=== PATIENT | female | born 1965 | race Hispanic/Latino ===

== ENCOUNTER 2017-10-16 22:31 | Observation (INO) | payer OTHER ==
[2017-10-16 23:03] LABS: Absolute Lymphocytes (CBC) 3.3 K/uL (0.7-4.9); Absolute Monocytes 0.3 K/uL (0.1-1.3); Absolute Neutrophil 2.8 K/uL (1.8-8.0); Basophils % 0.5 % (0-1.3); Eosinophils % 4.4 % (0-4.4); Hematocrit 38.4 % (36.0-45.0); Lymphocytes % 49.4 % (15.3-44.8); MCV 79.7 fL (80-100); MPV 8.4 fL (7.6-11.3); Monocytes % 4.5 % (3.3-12.3); RBC Red Blood Cell Count 4.82 M/uL (3.86-4.86)
[2017-10-16 23:07] LABS: Protime INR 0.97
[2017-10-16] MEDS ORDERED: ONDANSETRON 4 MG/2 ML VIAL ONE (23:13)
[2017-10-16] MEDS ORDERED: NA CHLORIDE 0.9% 1,000 ML ONE (23:13)
[2017-10-16] MEDS ORDERED: ASPIRIN 81 MG CHEWABLE TABLET ONE (23:13)
[2017-10-16 23:17] LABS: Potassium 3.5 mEq/L (3.6-5.0)
[2017-10-16 23:23] LABS: Albumin 4.5 g/dL (3.2-5.5); Bilirubin Direct 0.1 mg/dL (0-0.2); Bilirubin Total 0.5 mg/dL (0.3-1.2); Magnesium 1.9 mg/dL (1.8-2.5); Protein, Total 8.6 g/dL (6.0-8.3)
[2017-10-16 23:25] LABS: CKMB Creatine Kinase MB 1.9 ng/ml (0.3-4.0)
[2017-10-16] MEDS ORDERED: METOPROLOL TAR 25 MG TAB ONE (23:40)
--- NOTE | 2017-10-17 01:52 | EDPHYS ---
Physician Documentation [facility] Name: Lucia Perera Age: 52 yrs Sex: Female : 1965 Arrival Date: 10/16/2017 Time: 22:33 Bed 2 Private MD: ED Physician Alfonzo Cruz HPI: 10/16 22:48 This 52 yrs old Female presents to ER via Unassigned with complaints of Chest cp Pain. 22:48 The patient or guardian reports chest pain that is located primarily in the anterior cp chest wall, left. 22:48 Onset: this morning. The pain radiates to the left arm, back. Associated signs and cp symptoms: Pertinent positives: nausea, recent travel, Pertinent negatives: abdominal pain, diaphoresis, headache, lower extremity pain, lower extremity swelling, near syncope, syncope. The chest pain is described as a pressure, heaviness. Duration: The patient or guardian reports a single episode, that is still ongoing. 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 - Social history:: Smoking status: Patient/guardian denies using tobacco. - Ebola Screening: : No symptoms or risks identified at this time. ROS: 22:55 Constitutional: Negative for body aches, chills, fever, poor PO intake. cp 22:55 Eyes: Negative for injury, pain, redness, and discharge. cp 22:55 ENT: Negative for drainage from ear(s), ear pain, sore throat, difficulty swallowing, difficulty handling secretions. 22:55 Cardiovascular: Positive for chest pain, Negative for edema, palpitations. 22:55 Respiratory: Negative for cough, wheezing. 22:55 Abdomen/GI: Positive for nausea, Negative for vomiting, diarrhea, constipation, black/tarry stool, rectal bleeding. 22:55 Back: Positive for radiated pain. 22:55 : Negative for urinary symptoms, flank pain. 22:55 Skin: Negative for cellulitis, rash. 22:55 Neuro: Negative for altered mental status, dizziness, headache, numbness, syncope, near syncope, weakness. 22:55 All other systems are negative. Exam: 23:00 Constitutional: The patient appears in no acute distress, alert, awake, cp non-diaphoretic, non-toxic, well developed, well nourished. 23:00 Head/Face: Normocephalic, atraumatic. Eyes: Pupils equal round and reactive to light, cp extra-ocular motions intact. Lids and lashes normal. Conjunctiva and sclera are non-icteric and not injected. Cornea within normal limits. Periorbital areas with no swelling, redness, or edema. ENT: Nares patent. No nasal discharge, no septal abnormalities noted. Tympanic membranes are normal and external auditory canals are clear. Oropharynx with no redness, swelling, or masses, exudates, or evidence of obstruction, uvula midline. Mucous membranes moist. Neck: Trachea midline, no thyromegaly or masses palpated, and no cervical lymphadenopathy. Supple, full range of motion without nuchal rigidity, or vertebral point tenderness. No Meningismus. Chest/axilla: Normal chest wall appearance and motion. Nontender with no deformity. No lesions are appreciated. 23:00 Cardiovascular: Rate: normal, Rhythm: regular, Heart sounds: murmur, not appreciated, rub, not appreciated, gallop, not appreciated, Edema: is not appreciated, JVD: is not appreciated. 23:00 Respiratory: the patient does not display signs of respiratory distress, Respirations: normal, no use of accessory muscles, no retractions, no splinting, no tachypnea, labored breathing, is not present, Breath sounds: are clear throughout, no decreased breath sounds, no stridor, no wheezing. 23:00 Abdomen/GI: Inspection: abdomen appears normal, Bowel sounds: active, all quadrants, Palpation: abdomen is soft and non-tender, in all quadrants, rebound tenderness, is not appreciated, voluntary guarding, is not appreciated, involuntary guarding, is not appreciated. 23:00 Back: pain, that is mild, CVA tenderness, is absent. 23:00 Musculoskeletal/extremity: Exam is negative for calf tenderness, decreased range of motion, edema. 23:00 Skin: cellulitis, is not appreciated, no rash present. 23:00 Neuro: Orientation: to person, place \T\ time. Mentation: lucid, able to follow commands, Cerebellar function: is grossly normal, Motor: moves all fours, strength is normal, Sensation: no obvious gross deficits. Vital Signs: 23:02 BP 137 / 97; Pulse 91; Resp 18; Temp 97.9(TE); Pulse Ox 96% on R/A; Weight 83.46 kg; tl2 Height 4 ft. 11 in. (149.86 cm); Pain 5/10; 23:09 BP 137 / 89; Pulse 83; Resp 20; Pulse Ox 100% on R/A; mt 10/17 00:05 BP 122 / 82; Pulse 82; Resp 16; Pulse Ox 98% on R/A; mt 00:30 BP 117 / 79; Pulse 82; Resp 18; Pulse Ox 99% on R/A; Pain 0/10; tl2 01:06 BP 134 / 71; Pulse 68; Resp 18; Pulse Ox 95% on R/A; tl2 01:53 BP 121 / 84; Pulse 69; Resp 20; Pulse Ox 96% on R/A; mt 03:00 BP 114 / 81; Pulse 83; Resp 18; Pulse Ox 100% on R/A; tl2 10/16 23:02 Body Mass Index 37.16 (83.46 kg, 149.86 cm) tl2 MDM: 10/16 22:50 Patient medically screened. 23:00 Differential diagnosis: abnormal EKG, acute myocardial infarction, acute pericarditis, cp chest wall pain, costochondritis, myocarditis, pancreatitis, peptic ulcer disease, pericarditis, pleurisy, pneumonia, pneumothorax, pulmonary embolus, stable angina, thoracic aortic disection, unstable angina. 10/17 01:49 Physician consultation: Brandt Ramirez MD was called at 01:50, was contacted at 01:50, regarding admission, to the telemetry unit. patient's condition. 03:00 Data reviewed: vital signs, nurses notes, lab test result(s), EKG, radiologic studies, cp CT scan. 03:00 The patient was given aspirin in the Emergency Department. Test interpretation: by ED cp physician or midlevel provider: ECG, plain radiologic studies. Response to treatment: the patient's symptoms have markedly improved after treatment. 10/16 22:50 Order name: Basic Metabolic Panel; Complete Time: 23:27 cp 06/10 23:49 Interpretation: Normal except: K 3.5; GLUC 201; GFR 74. cp 10/16 22:50 Order name: BNP; Complete Time: 23:49 cp 10/16 22:50 Order name: CBC with Diff; Complete Time: 23:27 cp 10/16 23:49 Interpretation: Normal except: MCV 79.7; MCH 26.0; CHRISTIAN% 41.2; LYM% 49.4. cp 10/16 22:50 Order name: Ckmb; Complete Time: 23:27 cp 10/16 22:50 Order name: CPK; Complete Time: 23:27 cp 10/16 22:50 Order name: LFT's; Complete Time: 23:27 cp 10/16 23:50 Interpretation: Normal except: SGOT 75; SGPT 65; TP 8.6; GLOB 4.1. 10/16 22:50 Order name: Magnesium; Complete Time: 23:27 cp 10/16 23:50 Interpretation: MG 1.9; Reviewed. 10/16 22:50 Order name: PT-INR; Complete Time: 23:27 10/16 22:50 Order name: Ptt, Activated; Complete Time: 23:27 cp 10/16 22:50 Order name: Troponin (emerg Dept Use Only); Complete Time: 23:27 10/16 22:50 Order name: XRAY Chest (1 view) 10/16 22:50 Order name: Lipase; Complete Time: 23:27 10/17 03:40 Order name: Urine Dipstick--Ancillary (enter results) [facility] 10/17 03:40 Order name: Urine --Ancillary (enter results) [facility] 10/16 22:50 Order name: Urine Test (obtain specimen); Complete Time: 00:28 cp 10/16 22:50 Order name: EKG; Complete Time: 22:50 cp 10/16 22:50 Order name: Cardiac monitoring; Complete Time: 23:06 cp 10/16 22:50 Order name: EKG - Nurse/Tech; Complete Time: 23:06 cp 10/16 22:50 Order name: IV Saline Lock; Complete Time: 23:06 cp 10/16 22:50 Order name: Labs collected and sent; Complete Time: 23:06 cp 10/16 22:50 Order name: O2 Per Protocol; Complete Time: 23:06 cp 10/16 22:50 Order name: O2 Sat Monitoring; Complete Time: 23:06 cp 10/16 23:27 Order name: CT Aorta for Dissection 10/16 22:50 Order name: Urine Dipstick-Ancillary (obtain specimen); Complete Time: 00:29 cp Administered Medications: 10/16 23:06 Drug: Aspirin Chewable Tablet 324 mg Route: PO; tl2 10/17 03:08 Follow up: Response: No adverse reaction tl2 10/16 23:20 Drug: NS 0.9% 500 ml Route: IV; Rate: bolus; Site: left antecubital; tl1 10/17 03:08 Follow up: IV Status: Completed infusion; IV Intake: 500ml tl2 10/16 23:21 Drug: Zofran 4 mg Route: IVP; Infused Over: 2 mins; Site: left antecubital; tl1 10/17 00:30 Follow up: Response: No adverse reaction; Nausea is decreased tl2 00:06 Drug: Metoprolol 25 mg Route: PO; tl1 03:08 Follow up: Response: No adverse reaction tl2 00:06 Not Given (Do not have on unit): morphine 2 mg IVP once tl1 00:08 Drug: NS 0.9% 1000 ml Route: IV; Rate: 100 ml/hr; Site: right antecubital; tl1 03:26 Follow up: IV Status: Infusion continued upon admission tl2 03:08 Drug: Lovenox 40 mg Route: Sub-Q; Site: right lower abdomen; tl2 03:26 Follow up: Response: No adverse reaction tl2 Disposition: 03:41 Co-signature as Attending Physician, Alfonzo Cruz MD. pk Disposition: 10/17/17 01:50 Hospitalization ordered by Brandt Ramirez for Observation. Preliminary diagnosis is Chest pain, unspecified. - Bed requested for Telemetry/MedSurg (observation). - Status is Observation. tl2 - Condition is Stable. - Problem is new. - Symptoms have improved. UTI on Admission? No Signatures: Dispatcher [employer] EDMS Alfonzo Cruz MD MD pkPriya Hoang RN RN tl1 Tello Kern PA PA cp Knox, Taylor, RN RN tl2 Loyda Blanton mt Corrections: (The following items were deleted from the chart) 01:53 01:50 Hospitalization Ordered by Brandt Ramirez MD for Observation. Preliminary mt diagnosis is Chest pain, unspecified. Bed requested for Telemetry/MedSurg (observation). Status is Observation. Condition is Stable. Problem is new. Symptoms have improved. UTI on Admission? No. cp 03:27 01:53 10/17/2017 01:50 Hospitalization Ordered by Brandt Ramirez MD for Observation. tl2 Preliminary diagnosis is Chest pain, unspecified. Bed requested for Telemetry/MedSurg (observation). Status is Observation. Condition is Stable. Problem is new. Symptoms have improved. UTI on Admission? No. mt 03:40 03:27 10/17/2017 01:50 Hospitalization Ordered by Brandt Ramirez MD for Observation. tl2 Preliminary diagnosis is Chest pain, unspecified. Bed requested for Telemetry/MedSurg (observation). Status is Observation. Condition is Stable. Problem is new. Symptoms have improved. UTI on Admission? No. tl2
--- NOTE | 2017-10-17 01:52 | ER ---
Nurse's Notes [facility] Name: Lucia Perera Age: 52 yrs Sex: Female : 1965 Arrival Date: 10/16/2017 Time: 22:33 Bed 2 Private MD: Diagnosis: Chest pain, unspecified Presentation: 10/16 23:00 Presenting complaint: Patient states: I've had chest discomfort for 2 days but it got tl2 worse today. Pressure in mid chest that goes straight through to back. Reports heaviness in left arm, nausea and feels clammy. Transition of care: patient was not received from another setting of care. Onset of symptoms was October 14, 2017. Risk Assessment: Do you want to hurt yourself or someone else? Patient reports no desire to harm self or others. Initial Sepsis Screen: Does the patient meet any 2 criteria? No. Patient's initial sepsis screen is negative. Does the patient have a suspected source of infection? No. Patient's initial sepsis screen is negative. Care prior to arrival: None. 23:00 Method Of Arrival: Ambulatory tl2 23:00 Acuity: SAMANTA 2 tl2 Triage Assessment: 23:02 General: Appears in no apparent distress. uncomfortable, Behavior is cooperative, tl2 appropriate for age, anxious. Pain: Complains of pain in mid-sternal area Pain radiates to thoracic area Pain currently is 5 out of 10 on a pain scale. Quality of pain is described as pressure, Pain began 2-3 days ago. Is intermittent. Neuro: Level of Consciousness is awake, alert, obeys commands, Oriented to person, place, time, situation. Cardiovascular: Reports diaphoresis, nausea, Heart tones S1 S2 present Rhythm is sinus rhythm Chest pain is described as mild, quality is pressure, is located in anterior posterior radiates to left arm(s). Respiratory: Airway is patent Respiratory effort is even, unlabored, Respiratory pattern is regular, symmetrical. GI: Reports nausea, Patient currently denies vomiting. : No signs and/or symptoms were reported regarding the genitourinary system. Derm: Skin is pink, warm \T\ dry. 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 - Social history:: Smoking status: Patient/guardian denies using tobacco. - Ebola Screening: : No symptoms or risks identified at this time. Screenin/11 00:31 Abuse screen: Denies threats or abuse. Nutritional screening: No deficits noted. tl2 Tuberculosis screening: No symptoms or risk factors identified. Fall Risk None identified. Assessment: 10/16 23:02 General: see triage assessment. tl1 10/17 00:08 Reassessment: Pt stated that she did not need anything for pain at this time. We are tl1 out of morphine in the ED and pt did not want to take anything else. 01:30 Reassessment: Patient appears in no apparent distress at this time. Patient and/or tl2 family updated on plan of care and expected duration. Pain level reassessed. Patient is alert, oriented x 3, equal unlabored respirations, skin warm/dry/pink. 02:30 Reassessment: Patient appears in no apparent distress at this time. Patient and/or tl2 family updated on plan of care and expected duration. Pain level reassessed. Patient is alert, oriented x 3, equal unlabored respirations, skin warm/dry/pink. 03:25 Reassessment: Patient appears in no apparent distress at this time. Patient and/or tl2 family updated on plan of care and expected duration. Pain level reassessed. Patient is alert, oriented x 3, equal unlabored respirations, skin warm/dry/pink. Pt stable and ready for transport to floor Patient states feeling better. Vital Signs: 10/16 23:02 BP 137 / 97; Pulse 91; Resp 18; Temp 97.9(TE); Pulse Ox 96% on R/A; Weight 83.46 kg; tl2 Height 4 ft. 11 in. (149.86 cm); Pain 09/15; 23:09 BP 137 / 89; Pulse 83; Resp 20; Pulse Ox 100% on R/A; mt 10/17 00:05 BP 122 / 82; Pulse 82; Resp 16; Pulse Ox 98% on R/A; mt 00:30 BP 117 / 79; Pulse 82; Resp 18; Pulse Ox 99% on R/A; Pain 0/10; tl2 01:06 BP 134 / 71; Pulse 68; Resp 18; Pulse Ox 95% on R/A; tl2 01:53 BP 121 / 84; Pulse 69; Resp 20; Pulse Ox 96% on R/A; mt 03:00 BP 114 / 81; Pulse 83; Resp 18; Pulse Ox 100% on R/A; tl2 10/16 23:02 Body Mass Index 37.16 (83.46 kg, 149.86 cm) tl2 ED Course: 10/16 22:33 Patient arrived in ED. ds1 22:48 Tello Kern PA is PHCP. cp 22:48 Alfonzo Cruz MD is Attending Physician. cp 22:59 Ngozi Steele, CHANEL is Primary Nurse. tl2 23:01 Triage completed. tl2 23:02 Arm band placed on right wrist. EKG completed in triage. Results shown to MD. tl2 23:06 X-ray completed. Portable x-ray completed in exam room. Patient tolerated procedure kw well. 23:07 XRAY Chest (1 view) In Process Unspecified. EDMS 23:10 Inserted saline lock: 22 gauge in left antecubital area, using aseptic technique. Blood tl2 collected. 23:53 CT Aorta for Dissection In Process Unspecified. EDMS 06 00:04 CT completed. Patient tolerated procedure well. Patient moved to CT via stretcher. Patient moved back from CT. 00:31 Patient has correct armband on for positive identification. Placed in gown. Bed in low tl2 position. Call light in reach. Side rails up X 1. lunchroom monitor on. Pulse ox on. NIBP on. 00:31 No provider procedures requiring assistance completed. tl2 00:32 Patient maintains SpO2 saturation greater than 95% on room air. tl2 01:50 Brandt Ramirez MD is Hospitalizing Provider. cp 03:25 Patient admitted, IV remains in place. tl2 03:38 Primary Nurse role handed off by Ngozi Steele, RN tl2 03:38 Ngozi Steele, RN is Primary Nurse. tl2 Administered Medications: 10/16 23:06 Drug: Aspirin Chewable Tablet 324 mg Route: PO; tl2 10/17 03:08 Follow up: Response: No adverse reaction tl2 10/16 23:20 Drug: NS 0.9% 500 ml Route: IV; Rate: bolus; Site: left antecubital; tl1 10/17 03:08 Follow up: IV Status: Completed infusion; IV Intake: 500ml tl2 10/16 23:21 Drug: Zofran 4 mg Route: IVP; Infused Over: 2 mins; Site: left antecubital; tl1 10/17 00:30 Follow up: Response: No adverse reaction; Nausea is decreased tl2 00:06 Drug: Metoprolol 25 mg Route: PO; tl1 03:08 Follow up: Response: No adverse reaction tl2 00:06 Not Given (Do not have on unit): morphine 2 mg IVP once tl1 00:08 Drug: NS 0.9% 1000 ml Route: IV; Rate: 100 ml/hr; Site: right antecubital; tl1 03:26 Follow up: IV Status: Infusion continued upon admission tl2 03:08 Drug: Lovenox 40 mg Route: Sub-Q; Site: right lower abdomen; tl2 03:26 Follow up: Response: No adverse reaction tl2 Intake: 03:08 IV: 500ml; Total: 500ml. tl2 Outcome: 01:50 Decision to Hospitalize by Provider. cp 03:25 Admitted to Tele accompanied by tech, via wheelchair, room 419, with chart, Report tl2 called to CHANEL Paul 03:25 Condition: stable 03:25 Discharge instructions given to patient, Instructed on the need for admit. 03:27 Patient left the ED. tl2 03:40 Patient left the ED. tl2 Signatures: Dispatcher [employer] EDMD Deniz Kessler Karol Ruiz ds1 Darline Mccullough Tonya, RN RN tl1 Tello Kern PA PA cp Knox, Taylor, RN RN tl2 Loyda Blanton mt Corrections: (The following items were deleted from the chart) 00:08 10/16 23:02 Reassessment: Pt stated that she did not need anything for pain at this tl1 time. We are out of morphine in the ED and pt did not want to take anything else tl1 10/17 00:32 06 22:30 Inserted saline lock: 22 gauge in left antecubital area, using aseptic tl2 technique. Blood collected. tl2
[2017-10-17] MEDS ORDERED: MORPHINE 4 MG/ML SYR IV PRN (03:07)
[2017-10-17] MEDS ORDERED: ACETAMINOPHEN 500 MG TAB PO PRN (03:07)
[2017-10-17] MEDS ORDERED: ENOXAPARIN 40 MG/0.4 ML SQ ONE (03:09)
[2017-10-17 03:51] VITALS: O2SAT 100
[2017-10-17 04:47] VITALS: BMI 37.1
[2017-10-17 06:01] LABS: Urine Blood TRACE (NEG); Urine Glucose NEGATIVE (NEG); Urine Protein NEGATIVE (NEG); Urine Specific Gravity 1.005 (1.005-1.030); Urine pH 5.5 (5.0-7.0)
--- NOTE | 2017-10-17 06:29 | EKG ---
Test Date: 2017-10-16 Test Time: 22:46:37 Heel Nail [place]asper: LIBBY MEASUREMENT RESULTS: Intervals: Rate: 88 WA: 158 QRSD: 88 QT: 386 QTc: 467 [place]: P: 46 WA: 158 QRS: 38 T: 22 INTERPRETIVE STATEMENTS: Normal sinus rhythm Normal ECG No previous ECG available for comparison Electronically Signed On 10-17-17 06:28:17 CDT by Aiden Luis
--- NOTE | 2017-10-17 08:11 | RAD REPORT ---
EXAM DESCRIPTION: Hortensia Single View10/16/2017 11:07 pm CLINICAL HISTORY: Chest pain COMPARISON: none FINDINGS: The lungs appear clear of acute infiltrate. The heart is normal size IMPRESSION: No acute abnormalities displayed
[2017-10-17] MEDS ORDERED: REGADENOSON 0.4 MG/5 ML SYR IV ONE (08:20)
--- NOTE | 2017-10-17 08:53 | P.HP ---
Certification for Inpatient Patient admitted to: Observation With expected LOS: <2 Midnights Patient will require the following post-hospital care: None Practitioner: I am a practitioner with admitting privileges, knowledge of patient current condition, hospital course, and medical plan of care. Services: Services provided to patient in accordance with Admission requirements found in Title 42 Section 412.3 of the Code of Federal Regulations Patient History Date of Service: 10/17/17 Reason for admission: Chest pain rule out acute coronary syndrome History of Present Illness: Patient is a 52-year-old gentleman who came into the hospital with chest pain. Patient's pain started in the sternal region and radiated to his back. Patient has severe chest discomfort. Patient came into the hospital for further evaluation. Patient denies any prior history of chest pain. Patient has not had any cardiac issues. However, patient does have numerous risk factors including hypertension, type 2 diabetes, and a family history. Patient's chest pain initially started at 4:00 p.m. pending got progressively worse still 10 o' clock in the evening when the patient came to the hospital. Patient's initial troponin and EKG did not reveal any significant abnormality. Patient will get Cardiology Consult for further evaluation. Patient did have her stress test 4 years ago which was negative. Allergies No Known Allergies Allergy (Unverified 10/17/17 02:10) Home Medications: Losartan Potassium 50 mg PO DAILY 10/17/17 Metformin HCl 500 mg PO DAILY 10/17/17 - Past Medical/Surgical History Diabetic: Yes -: HTN -: DM-2 -: Hysterectomy -: Tubal ligation -: Cholecystectomy - Family History Mother Medical History: Heart disease, Hypertension, Diabetes Father Medical History: Heart disease, Hypertension, Diabetes - Social History Smoking Status: Never smoker Alcohol use: Yes CD- Drugs: No Caffeine use: Yes Place of Residence: Home Review of Systems 10-point ROS is otherwise unremarkable Physical Examination - Vital Signs Temperature: 99.0 F Blood Pressure: 100/70 Pulse: 67 Respirations: 16 Pulse Ox (%): 97 - Physical Exam General: Alert, In no apparent distress, Oriented x3 HEENT: Atraumatic, PERRLA, Mucous membr. moist/pink, EOMI, Sclerae nonicteric Neck: Supple, 2+ carotid pulse no bruit, No LAD, Without JVD or thyroid abnormality Respiratory: Clear to auscultation bilaterally, Normal air movement Cardiovascular: Regular rate/rhythm, Normal S1 S2, No murmurs Gastrointestinal: Normal bowel sounds, Soft and benign, Non-distended, No tenderness Musculoskeletal: No clubbing, No swelling, No tenderness Integumentary: No rashes Neurological: Normal gait, Normal speech, Normal strength at 5/5 x4 extr, Normal tone, Sensation intact, Cranial nerves 3-12 intact, Normal affect Lymphatics: No axilla or inguinal lymphadenopathy - Studies Laboratory Data (last 24 hrs) 10/16/17 22:50: PT 11.5, INR 0.97, APTT 28.8 10/16/17 22:50: WBC 6.7, Hgb 12.5, Hct 38.4, Plt Count 308 10/16/17 22:50: B-Natriuretic Peptide < 10 10/16/17 22:50: Sodium 136, Potassium 3.5 L, BUN 15, Creatinine 0.81, Glucose 201 H, Magnesium 1.9, Total Bilirubin 0.5, AST 75 H, ALT 65 H, Alkaline Phosphatase 67, Lipase 39 Assessment & Plan - Problems (Diagnosis) (1) Chest pain, rule out acute myocardial infarction Current Visit: Yes Status: Acute (2) HTN (hypertension) Current Visit: Yes Status: Acute (3) DM2 (diabetes mellitus, type 2) Current Visit: Yes Status: Acute - Plan 1. Serial troponins and EKG 2. Cardiology consultation 3. Echocardiogram and stress test if cardiology is agreeable 4. Anti-platelet therapy, anti coagulation, beta-ortiz, statin, and O2 as needed 5. IV morphine for pain 6. Nitro p.r.n. Discharge Plan: Home Plan to discharge in: 24 Hours - Advance Directives Does patient have a Living Will: No Does patient have a Durable POA for Healthcare: No - Code Status/Comfort Care Code Status Assessed: Yes Code Status: Full Code Critical Care: No Time Spent Managing PTS Care (In Minutes): 50
[2017-10-17] MEDS ORDERED: ENOXAPARIN 40 MG/0.4 ML SQ SCH (09:00)
[2017-10-17] MEDS ORDERED: ASPIRIN EC 81 MG TAB PO SCH (09:00)
[2017-10-17] MEDS ORDERED: METOPROLOL TAR 50 MG TAB PO SCH (09:00)
--- NOTE | 2017-10-17 09:44 | RAD REPORT ---
EXAM DESCRIPTION: CT - Angio Aorta For Dissection - 10/17/2017 4:31 am CLINICAL HISTORY: Shortness of breath, chest pain and pressure A preliminary written report was provided at the time of the study, and the report was reviewed prio r to final dictation. COMPARISON: Chest exam October 16 TECHNIQUE: Dynamically enhanced 3 mm thick images of the chest, abdomen, and upper pelvis were obtai amrik during administration of approximately 150mL Isovue 370 IV contrast. Sagittal and coronal reconst ruction images were generated and reviewed. Exam utilizes a protocol to evaluate entire course of the aorta. All CT scans are performed using dose optimization technique as appropriate and may include automated exposure control or mA/KV adjustment according to patient size. FINDINGS: Aorta is normal in diameter with no dissection or other acute aortic findings. Reconstruct ion images show no significant findings. Pulmonary arteries are normal as well. No cardiomegaly, pericardial thickening or pericardial effusio n. No mass or infiltrate in the lung parenchyma. No pleural thickening, pleural effusion or pneumothorax . No abnormal mediastinal or hilar mass or lymphadenopathy seen. No chest wall mass or abnormal axillar y lymphadenopathy. Celiac, SMA and renal arteries show no suspicious findings. Two renal artery supply the left kidney i s a normal variant. There is an incidental 2.4 centimeter cyst lower pole right kidney. Solid abdomin al viscera and bowel show no significant findings. Liver shows a mild diffuse fatty infiltration acce ntuated during the dissection protocol. Gallbladder is absent. Biliary tree within normal limits for a post cholecystectomy patient. No mass or abnormal lymphadenopathy. No free air, free fluid or infl ammatory stranding. No urinary bladder abnormality. IMPRESSION: No aneurysm, dissection or other significant aortic finding. No other significant findings on chest, abdomen and upper pelvis examination.Nonacute incidental find ings detailed in the body of the report.
--- NOTE | 2017-10-17 11:11 | P.PN ---
Subjective Date of Service: 10/17/17 Chief Complaint: Chest pain rule out acute coronary syndrome Subjective: Ambulating, Doing well Patient was seen through ED last night for sudden onset chest pain. Patient doing better this morning. Currently without pain or nausea. Dr. Luis consulted and saw patient. Recommends Echo and stress test <Jack Peng - Last Filed: 10/17/17 11:06> Date of Service: 10/18/17 <Nelia Copeland - Last Filed: 10/18/17 15:51> Review of Systems 10-point ROS is otherwise unremarkable Cardiovascular: Chest Pain <Jack Peng - Last Filed: 10/17/17 11:06> Physical Examination - Vital Signs Temperature: 99.0 F Blood Pressure: 100/70 Pulse: 67 Respirations: 16 Pulse Ox (%): 97 - Physical Exam General: Alert, In no apparent distress, Oriented x3, Cooperative HEENT: PERRLA, Mucous membr. moist/pink, EOMI Neck: Supple, 2+ carotid pulse no bruit, JVD not distended, No Thyromegaly Respiratory: Clear to auscultation bilaterally, Normal air movement Cardiovascular: No edema, Normal pulses, Regular rate/rhythm, Normal S1 S2, No gallops, No rubs, No murmurs Capillary refill: <2 Seconds Gastrointestinal: Normal bowel sounds, Soft and benign, Non-distended, No ascites, No tenderness, No masses, No rebound, No guarding Musculoskeletal: No clubbing, No swelling, No contractures, No erythema, No tenderness, No warmth Integumentary: No rashes, No breakdown, No significant lesion, No tenderness/ swelling, No erythema, No warmth, No cyanosis Neurological: Normal gait, Normal speech, Normal strength at 5/5 x4 extr, Normal tone, Sensation intact, Cranial nerves 3-12 intact, Normal reflexes 2+, Normal affect Lymphatics: No axilla or inguinal lymphadenopathy - Studies Laboratory Data (last 24 hrs) 10/16/17 22:50: PT 11.5, INR 0.97, APTT 28.8 10/16/17 22:50: WBC 6.7, Hgb 12.5, Hct 38.4, Plt Count 308 10/16/17 22:50: B-Natriuretic Peptide < 10 10/16/17 22:50: Sodium 136, Potassium 3.5 L, BUN 15, Creatinine 0.81, Glucose 201 H, Magnesium 1.9, Total Bilirubin 0.5, AST 75 H, ALT 65 H, Alkaline Phosphatase 67, Lipase 39 <Jack Peng - Last Filed: 10/17/17 11:06> Assessment And Plan - Current Problems (Diagnosis) (1) Hypercholesteremia Status: Acute Plan: Will start patient on statin therapy to help reduce cholesterol. (2) Chest pain, rule out acute myocardial infarction Status: Acute Plan: Dr. Luis Consulted. Recommends echocardiogram and stress test. Will wait for results of those tests to proceed any further. Will continue to monitor patients vitals and pain level. (3) DM2 (diabetes mellitus, type 2) Status: Acute Plan: To monitor glucose and continue patient on her medications. Adjust as needed Qualifiers: Diabetes mellitus assisted insulin use: with assisted use Diabetes mellitus complication status: without complication Qualified Code(s): E11.9 - Type 2 diabetes mellitus without complications; Z79.4 - director long term care (current) use of insulin (4) HTN (hypertension) Status: Acute Plan: To monitor patients blood pressure and to give her daily medications. Adjust as needed Discharge Plan: Home Plan to discharge in: 24 Hours <Jack Peng - Last Filed: 10/17/17 11:06> - Plan Pt seen and examined. Agree w above A&P <Nelia Copeland - Last Filed: 10/18/17 15:51>
[2017-10-17 12:05] VITALS: BP 140/88; TEMP 97.5
--- NOTE | 2017-10-17 12:48 | ECHO ---
HEIGHT: 4 ft 11 in WEIGHT: 184 lb 0 oz DATE OF STUDY: 10/17/[address]: Brandt Ramirez MD 2-DIMENSIONAL: YES M.MODE: YES DOPPLER: YES COLOR FLOW: YES TDS: NO PORTABLE: NO DEFINITY: NO BUBBLE STUDY: NO DIAGNOSIS: CHEST PAIN CARDIAC HISTORY: CATHERIZATION: NO SURGERY: NO PROSTHETIC VALVE: NO PACEMAKER: NO MEASUREMENTS (cm) DIASTOLIC (NORMALS) SYSTOLIC (NORMALS) IVSd 1.1 (0.6-1.2) LA Diam 3.5 (1.9-4.0) LVEF 59% LVIDd 4.1 (3.5-5.7) LVIDs 2.8 (2.0-3.5) %FS 31% LVPWd 1.2 (0.6-1.2) Ao Diam 2.3 (2.0-3.7) 2 DIMENSIONAL ASSESSMENT: RIGHT ATRIUM: NORMAL LEFT ATRIUM: NORMAL RIGHT VENTRICLE: NORMAL LEFT VENTRICLE: NORMAL TRICUSPID VALVE: NORMAL MITRAL VALVE: NORMAL PULMONIC VALVE: NORMAL AORTIC VALVE: NORMAL PERICARDIAL EFFUSION: NONE AORTIC ROOT: NORMAL LEFT VENTRICULAR WALL MOTION: NORMAL. DOPPLER/COLOR FLOW: PHYSIOLOGIC TRICUSPID REGURGITATION. NORMAL RIGHT VENTRICULAR SYSTOLIC PRESSURE. COMMENTS: NORMAL 2D ECHO WITH DOPPLER. TECHNOLOGIST: LATISHA WATTERS
--- NOTE | 2017-10-17 13:23 | RAD REPORT ---
EXAM DESCRIPTION: NM - Rest Stress Cardiac Imaging - 10/17/2017 1:17 pm CLINICAL HISTORY: Chest pain COMPARISON: None. TECHNIQUE: The patient was administered 10.6 mCi of Tc 99m Sestamibi prior to resting SPECT imaging of the heart. The patient was then administered 30.3 mCi of Tc 99m Sestamibi following exercise or ph armacologic stress. Multiplanar SPECT images were reviewed. FINDINGS: The end diastolic volume is 62 ml, the end systolic volume is 21 ml, and the ejection frac tion is 66 %. No stress-induced ischemic changes identified. Small to moderate area diminished activity seen in mid and apex portion of the anterior wall not clearly different between rest and stress imaging. This co uld be breast attenuation artifact or a small scar. IMPRESSION: No stress-induced ischemic change. Small to moderate area of fixed decreased activity mid and apex portion of the anterior wall. This co uld be scarring or attenuation artifact. Ventricular volumes and ejection fraction are well within normal limits.
[2017-10-17 13:38] LABS: A1c Component 0.87 mg/dL; Hemoglobin A1c 8.4 % (4-6.0)
--- NOTE | 2017-10-17 14:38 | CON ---
Chief Complaint: Chest pain. History Of Present Illness: Mrs. Perera started having chest pain yesterday 3 in the afternoon an d lasted 2-4 hours. The patient is a little vague about it, went away without too much. She was abl e to walk and stand and do everything without any difficulty when that happened. It tended to occur when she was walking, but it persisted even when she sat and laid flat on her side. Since being in [facility], she has had EKGs that are normal. Cardiac enzymes are normal. Chest x-ray is normal. A CT angio of the chest was done to rule out dissection. It has not been officially interpreted or i f it has the report is not available. On official reading, it does not appear there was a dissection or pulmonary embolus. Four years ago, the patient had a similar episode of chest pain. A stress te st was done, it was normal. She has never had a heart cath. She has underlying diabetes, hypertensi on. She takes medicines and has those under good control. Social History: She uses no tobacco. Rare alcohol. No illegal drugs. Physical Examination: General: She is alert, oriented, pleasant, cooperative, not in distress. Vital Signs: 4 feet 11 inches, 184 pounds, body mass index 32. HEENT: Normal. Carotids: No bruit. Jugular vein pressure flat. Lungs: Clear. Heart: Within normal limits. Abdomen: Soft. Extremities: Normal. She has a previous history of hysterectomy, gallbladder surgery. Before the hysterectomy, she had tu bes placed. She is multigravid. Impression: This is probably not an acute coronary syndrome. If her pharmacologic nuclear stress te st and echo are normal, we can discharge her without any further evaluation. All of her symptoms res olved. I suspect it was something noncardiac that probably does not need to be investigated unless i t is recurrent. RICHARD/HATTIEL Voice ID: [id number] Report ID: [id number]
[2017-10-17] MEDS ORDERED: ATORVASTATIN 20 MG TAB PO SCH (21:00)
--- NOTE | 2017-10-18 07:18 | TREADPHA ---
DX: CHEST PAIN Date of Study: 10/17/2017 Ht: 4 11 Wt: 184 lb 0 oz Consulting Physician: SACHIN MEDICATIONS: TYLENOL, ASPIRIN, LOVENOX, LOPRESSOR, MORPHINE SULFATE HISTORY: 52 YEAR OLD FEMALE WITH COMPLAINTS OF CHEST PAIN. PHYSICIAL EXAMINATION: RESTING B.P.: 112/84 RESTING H.R.: 70 RESTING EKG: NORMAL PROTOCOL: LEXISCAN EXERCISE TIME: 3:30 B.P. AT PEAK STRESS: 129/86 IMPRESSION: LEXISCAN INJECTED, CARDIOLITE INJECTED PER PROTOCOL. SEE NUCLEAR MEDICINE REPORT. NO SUPRAVENTRICULAR TACHYCARDIA. NO VENTRICULAR TACHYCARDIA. NO PREMATURE VENTRICULAR COMPLEXES. DENIED CHEST PAIN, ONLY TIGHTNESS. NON-DIAGNOSTIC ELECTROCARDIOGRAM WITH LEXISCAN STRESS.
== END 2017-10-17 14:56 | disposition home or self-care (01) ==
LOC: ER 22:31 → 4TH 10-17 01:55
PROVIDERS: ADMIT Hospitalist; ATTEND Hospitalist
DX: R07.9 Chest pain, unspecified (principal); I10 Essential (primary) hypertension; E11.9 Type 2 diabetes mellitus without complications; E78.00 Pure hypercholesterolemia, unspecified
CPT/HCPCS: 36415; 71045; 71275; 74175; 78452; 80048; 80061; 80076; 81003; 81025; 82550; 82553; 82962; 83036; 83690; 83735; 83880; 84484; 85025; 85610; 85730; 93005; 93017; 93306; 96361; 96372; 96374; 99285; A9500; G0378; J1650; J2405; J2785; J7030; Q9967